=== PATIENT | male | born 1985 | race Hispanic/Latino ===

== ENCOUNTER 2020-08-01 07:01 | Emergency (ER) | payer OTHER, SELFPAY ==
--- NOTE | ~2020-08-01 | XR_ITS ---
EXAMINATION: XR chest 2V DATE: 08/01/2020 09:24 INDICATION: Left shoulder pain. TECHNIQUE: Frontal and lateral views of the chest were obtained. COMPARISON: CT abdomen and pelvis 08/01/2020 FINDINGS: There is mild atelectasis in the lower lung zones. No pleural effusion or pneumothorax. The heart size is normal. IMPRESSION: 1. Mild atelectasis in the lower lung zones. Reviewed, dictated and finalized at location A.
--- NOTE | ~2020-08-01 | XR_ITS ---
EXAMINATION: XR shoulder LT min 2V DATE: 08/01/2020 09:24 INDICATION: Left shoulder pain. TECHNIQUE: 4 views of left shoulder were obtained. COMPARISON: None. FINDINGS: Bone alignment is normal. No fracture. Joint spaces are well maintained. IMPRESSION: 1. Normal left shoulder. Reviewed, dictated and finalized at location A. IMPRESSION: 1. Normal left shoulder.
--- NOTE | ~2020-08-01 | CT_ITS ---
EXAMINATION: CTA chest DATE: 08/01/2020 11:56 INDICATION: Left shoulder pain. Abdominal pain, vomiting. Pulmonary embolism, aortic dissection TECHNIQUE: Computed tomography angiography (CTA) of the chest was performed with 100 mL Omnipaque-350 intravenous contrast timed to evaluate the pulmonary arteries. Coronal maximum intensity projection 3D-reconstructions were created by the technologist. Automated exposure control and iterative reconst ruction technique were employed. Exam dose: 814.41 mGy-cm total exam DLP. COMPARISON: 08/01/2020 PA and lateral chest FINDINGS: There is diagnostic contrast enhancement of the pulmonary arteries and no evidence of pulmo nary embolism. No evidence of thoracic aortic aneurysm or dissection. Normal heart size. No pericardial effusion. No hilar or mediastinal mass lesion or lymphadenopathy. Mild bilateral predominantly dependent lower lobe atelectasis and/or less likely mild infiltrate and posterior lingular mild basilar atelectasis or less likely infiltrate. No suspicious osteolytic or osteoblastic lesions. Normal morphology of the adrenal glands. Included upper abdominal structures are unremarkable. IMPRESSION: No evidence of pulmonary embolism Dependent lingular and bilateral lower lobe atelectasis or less likely mild infiltrate Reviewed, dictated and finalized at Location A. Reviewed, dictated and finalized at location B. IMPRESSION: No evidence of pulmonary embolism Dependent lingular and bilateral lower lobe atelectasis or less likely mild inf iltrate
--- NOTE | ~2020-08-01 | CT_ITS ---
EXAMINATION: CT abdomen pelvis w con DATE: 08/01/2020 08:17 INDICATION: Intermittent abdominal pain. Vomiting. TECHNIQUE: Computed tomography (CT) of the abdomen and pelvis was performed with 100 mL Omnipaque 350 intravenous contrast. Automated exposure control and iterative reconstruction technique were employe d. The dose-length product was 1478.47 mGy-cm. COMPARISON: None. FINDINGS: The visualized portions of the lung bases demonstrate mild atelectasis. No pleural effusion . The heart size is normal. No pericardial effusion. The liver, gallbladder, spleen, pancreas, adrena l glands, and left kidney are normal. There is an 11 mm cyst in right kidney. The appendix is normal. There are no dilated loops of bowel. There is liquid stool in the colon suggestive of diarrhea. Ther e are no pathologically enlarged lymph nodes. There is no free intraperitoneal fluid. There is modera te degenerative disc disease at L5-S1. IMPRESSION: 1. No specific etiology for the patient's symptoms. Reviewed, dictated and finalized at location A.
[2020-08-01 07:05] VITALS: BP 166/86; PULSE 86; RESP 16; TEMP 36.6; O2SAT 98
--- NOTE | 2020-08-01 07:14 | ED.ABDPAIN ---
HPI - Abdominal Pain General Chief Complaint: Abdominal Pain Stated Complaint: abd and back pain Time Seen by Provider: 08/01/20 07:13 Source: patient and family Mode of arrival: ambulatory Limitations: no limitations History of Present Illness HPI narrative: Patient is a 34-year-old male with a history of hypertension who presents for evaluation of abdominal pain, nausea and diarrhea. Patient states he has felt unwell over the past 2 days with numerous episodes of watery diarrhea and centralized abdominal pain. Patient reports that the pain is dull, aching in nature and at times radiates to the left shoulder. He denies chest pain or shortness of breath. He denies fever or chills. No sick contacts at home. No history of abdominal surgeries. No recent travel. No rhinorrhea, sore throat. Patient denies any urinary symptoms. No history of nephrolithiasis. Patient reports pain whenever he moves the left shoulder or sits up. He denies recent heavy bending or lifting. No history of injury to the shoulder. He denies any redness or swelling. No numbness or tingling in his arm. No weakness. Related Data Allergies Allergy/AdvReac Type Severity Reaction Status Date / Time No Known Allergies Allergy Verified 08/01/20 07:31 Review of Systems Review of Systems: Narrative: CONSTITUTIONAL: Denies fever, chills, or sweats. EYES: Denies visual changes, redness, or discharge. ENT: Denies rhinorrhea, congestion, sore throat, or otalgia. CARDIOVASCULAR: Denies chest pain, palpitations, or edema. RESPIRATORY: Denies cough or dyspnea. GASTROINTESTINAL: Reports abdominal pain, nausea without vomiting, reports diarrhea GENITOURINARY: Denies dysuria or hematuria. SKIN: Denies rash or itching. MUSCULOSKELETAL: Reports left shoulder pain NEUROLOGIC: Denies headache, numbness, or weakness. [facility] Social History Social History (Updated 08/01/20 @ 07:41 by Lydia Herrera MD) Smoking status: Never smoker Alcohol intake: never Substance use: never Living arrangements: with family Gender identity (if verbalized by the patient): Male Exam Narrative: Exam Narrative: GENERAL: Awake, alert, conversant HEAD: Normocephalic, atraumatic. EYES: PERRLA and EOMI. ENT: Nares clear, no rhinorrhea or epistaxis. Mucous membranes moist. NECK: Supple. CHEST: No respiratory distress, breathing even and non labored HEART: Regular rate, sinus rhythm ABDOMEN:Non distended, mildly tender in the periumbilical region without guarding, rebound or rigidity, positive right lower quadrant tenderness EXTREMITIES: Normal range of motion. No edema. Full range of motion of the left shoulder without weakness or deficit. Intact sensation over the deltoid. Movement over the shoulder reproduces pain. Positive Neer sign. No squaring off of the shoulder. No overlying erythema or edema. Intact sensation median, ulnar, radial nerve distribution. [place] Slitter strength 5/5. Full flexion and extension at the left elbow and left wrist without limitation. SKIN: Warm, dry, no rash. NEURO:No focal deficits. Alert and oriented x3 Course Vital Signs Vital signs: Vital Signs Temperature 36.6 C 08/01/20 07:05 Pulse Rate 86 08/01/20 07:05 Respiratory Rate 16 08/01/20 07:05 Blood Pressure 166/86 H 08/01/20 07:05 Pulse Oximetry 98 08/01/20 07:05 Temperature 36.6 C 08/01/20 07:05 Pulse Rate 67 08/01/20 12:05 Respiratory Rate 21 H 08/01/20 12:05 Blood Pressure 133/88 08/01/20 12:05 Pulse Oximetry 100 08/01/20 12:05 MDM - Abdominal Pain MDM Narrative Medical decision making narrative: Patient presented for evaluation of nausea, abdominal pain, and shoulder pain that is atraumatic. On exam, patient's pain seems more msk in nature and more consistent with gastroenteritis as well, however given symptoms occuring simultaneously, also worrisome for atypical anginal type presentation vs PE vs dissection. Patient's abdomen is soft without significant pain
[2020-08-01 07:34] LABS: Basophils Percent Auto 0.2 % (0.2-1.2); Eosinophils Absolute Auto 0.2 K/mm3 (0-0.3); Eosinophils Percent Auto 1.8 % (0-4.4); Hematocrit 47.2 % (42.0-52.0); Hemoglobin 16.7 g/dL (14.0-18.0); Immature Granulocyte Absolute 0.04 K/mm3 (0.00-0.031); Immature Granulocyte Percent A 0.4 % (0-0.5); Lymphocytes Absolute Auto 1.47 K/mm3 (0.9-3.2); Lymphocytes Percent Auto 15.1 % (18.3-44.2); Mean Corpuscular HGB Conc 35.4 g/dl (32-36); Mean Corpuscular Hemoglobin 31.5 pg (26-34); Mean Corpuscular Volume 89.1 fl (80-100); Mean Platelet Volume 9.9 fl (7.4-10.4); Monocytes Absolute Auto 0.9 K/mm3 (0.1-0.6); Monocytes Percent Auto 9.4 % (2.6-8.5); Neutrophils Absolute Auto 7.1 K/mm3 (1.3-6.7); Neutrophils Percent Auto 73.1 % (45.5-73.1); Platelet Count Result 233 k/mm3 (150-375); Red Cell Distribution Width 12.1 % (11.5-14.5); White Blood Count 9.8 K/mm3 (4.5-10.0)
--- NOTE | 2020-08-01 07:37 | ECG_ITS ---
Measurements Intervals [place] Rate: 81 P: 17 TX: 171 QRS: -2 QRSD: 111 T: 4 QT: 350 QTc: 406 Interpretive Statements SINUS RHYTHM INTRAVENTRICULAR CONDUCTION DELAY VOLTAGE CRITERIA FOR LVH BORDERLINE T WAVE ABNORMALITY- INFERIOR LEADS BORDERLINE ECG Electronically Signed On 08-01-2020 8:48:12 CDT by Herb De Guzman D.O.
[2020-08-01 07:38] LABS: Add Urine Microscopic? YES; Appearance Urine Clear (Clear); Bilirubin Urine Negative (Negative); Blood Urine 1+ (Negative); Color Urine Yellow (Yellow); Glucose Urine UA Negative (Negative); Ketones Urine Negative (Negative); Leukocyte Esterase Ur Negative LEU/UL (Negative); Mucus Urine Rare /lpf; Nitrate Urine Negative (Negative); Protein Urine 1+ mg/dL (Negative); Specific Grav Ur 1.023 (1.001-1.035); Urobilinogen Urine Negative mg/dL (<2.0); WBC Urine 0-3 /hpf
[2020-08-01 07:50] LABS: Alanine Aminotransferase 49 U/L (4-50); Albumin Level 4.7 g/dL (3.5-5.1); Alkaline Phosphatase 72 U/L (38-126); Anion Gap 7 mmol/L (8-16); Aspartate Amino Transferase 33 U/L (17-59); Bilirubin,Total 0.7 mg/dL (0.2-1.3); Blood Urea Nitrogen 11 mg/dL (9-20); Calcium 9.3 mg/dL (8.4-10.2); Carbon Dioxide 28 mmol/L (22-30); Chloride 100 mmol/L (98-107); Estimated CRCL calculation 121 ml/min; Estimated Glomerular Filt Rate > 60; Glucose 107 mg/dL (75-110); Lipase 36 U/L (23-300); Sodium 135 mmol/L (137-145)
[2020-08-01] MEDS: SODIUM CHLORIDE 0.9% IV 1,000 ML 999 ML IV CONT (07:50)
[2020-08-01] MEDS: MORPHINE SULFATE (*CRX) 4 MG/ML INJ IV PUSH (07:51)
[2020-08-01] MEDS: ONDANSETRON INJ 4 MG/2 ML VIAL IV PUSH (07:51)
[2020-08-01 08:00] LABS: Potassium 3.8 mmol/L (3.4-5.0)
[2020-08-01 08:09] LABS: INR 0.9; Prothrombin Time 13.2 Seconds (11.1-14.7)
[2020-08-01 08:19] LABS: Troponin I < 0.012 ng/mL (0.000-0.034)
[2020-08-01 08:28] VITALS: BP 147/76; PULSE 77; RESP 15; O2SAT 100
[2020-08-01 10:36] VITALS: BP 123/77; PULSE 66; RESP 28; O2SAT 94
[2020-08-01 10:46] LABS: Troponin I < 0.012 ng/mL (0.000-0.034)
[2020-08-01 12:05] VITALS: BP 133/88; PULSE 67; RESP 21; O2SAT 100
== END 2020-08-01 12:24 | disposition home or self-care (01) ==
PROVIDERS: Emergency Provider Emergency Medicine
DX: K52.9 Noninfective gastroenteritis and colitis, unspecified (principal); S46.912A Strain of unspecified muscle, fascia and tendon at shoulder and upper arm level, left arm, initial encounter; R94.31 Abnormal electrocardiogram [ECG] [EKG]; I10 Essential (primary) hypertension; X58.XXXA Exposure to other specified factors, initial encounter
CPT/HCPCS: 36415; 71046; 71275; 73030; 74177; 80053; 81001; 83690; 84484; 85025; 85610; 93005; 96361; 96374; 96375; 99284; J2270; J2405; J7030; Q9967